=== PATIENT | male | born 1970 ===

== ENCOUNTER 2017-10-29 01:52 | Emergency (ER) | payer SELFPAY ==
[2017-10-29 01:52] VITALS: BMI 34.3
[2017-10-29] MEDS ORDERED: Morphine 4 MG/ML VIAL IVP ONE (02:30)
[2017-10-29] MEDS ORDERED: Iohexol 240 (50 ml) PO ONE (02:30)
[2017-10-29] MEDS ORDERED: Sodium Chloride 0.9% 1,000 ML IV STA (02:31)
--- NOTE | 2017-10-29 02:32 | ED PDOC ---
HPI: Abdomen Time Seen by Provider: 10/29/17 02:31 Chief Complaint (Nursing): Abdominal Pain Chief Complaint (Provider): ABDOMINAL PAIN History Per: Patient (47 Y/O MALE HERE FOR WORSENING ABDOMINAL PAIN X 2 DAYS ASSOCIATED WITH VOMITING. DENIES ANY FEVERS/CHILLS. ) Past Medical History Reviewed: Historical Data, Nursing Documentation, Vital Signs Vital Signs: Last Vital Signs Temp 97.9 F 10/29/17 02:11 Pulse 88 10/29/17 02:11 Resp 16 10/29/17 02:11 BP 143/81 10/29/17 02:11 Pulse Ox 96 10/29/17 05:29 - Medical History PMH: Denies: Arthritis, Asthma, Atrial Fibrillation, CHF, COPD, Diabetes, Hypercholesterolemia, Seizures - Surgical History Surgical History: Denies: CABG, Pacemaker - Family History Family History: States: CAD - Home Medications Home Medications: Ambulatory Orders Medication Instructions Recorded Famotidine [Pepcid] 20 mg PO Q12 #20 tab 05/05/16 Naproxen 375 mg PO Q8 PRN #21 tablet 10/29/17 - Allergies Allergies/Adverse Reactions: Allergies Allergy/AdvReac Type Severity Reaction Status Date / Time No Known Allergies Allergy Verified 10/29/17 02:11 Review of Systems ROS Statement: Except As Marked, All Systems Reviewed And Found Negative Physical Exam - Reviewed Nursing Documentation Reviewed: Yes Vital Signs Reviewed: Yes - Physical Exam Appears: Positive for: Well, Non-toxic, No Acute Distress Head Exam: Positive for: ATRAUMATIC, NORMAL INSPECTION, NORMOCEPHALIC Skin: Positive for: Normal Color, Warm, DRY Eye Exam: Positive for: EOMI, Normal appearance, PERRL ENT: Positive for: Normal ENT Inspection Neck: Positive for: Normal, Painless ROM Cardiovascular/Chest: Positive for: Regular Rate, Rhythm Respiratory: Positive for: CNT, Normal Breath Sounds Gastrointestinal/Abdominal: Positive for: Normal Exam, Soft Back: Positive for: Normal Inspection Extremity: Positive for: Normal ROM Neurologic/Psych: Positive for: Alert, Oriented - Laboratory Results Result Diagrams: 10/29/17 02:55 10/29/17 02:55 - ECG O2 Sat by Pulse Oximetry: 96 - Progress ED Course And Treament: morphine 4 mg iv x 1 dose zofran 4 mg iv x 1 dose ns 1 liter 500 ml per hour Called to bedside at CT for evlauation of chest tightness. Patient examined and noted to have wheezes bilaterally. STates he feels he is unable to breathe. Benadyl 50mg solumedrol 125mg iv Duoneb x 1 dose in ED EKG: NSR 82BPM NO ECTOPY NO ACUTE CHANGES NOTED CT abd/pelvis: IMPRESSION: 1. Small umbilical hernia containing nonindurated mesenteric fat. No other evidence of abdominal wall hernia or intestinal obstruction. 2. Moderate hepatic steatosis. Stable hepatic hypodensity and probable hemangioma when compared to CT - ABD PELVIS PO IV CONTRAST 2016-05-05 08:46. 3. Diverticulosis as described above without evidence of acute diverticulitis. 4. No change when compared to the CT - ABD PELVIS PO IV CONTRAST 2016-05-05 08: 46. Thank you for allowing us to participate in the care of your patient. Disposition - Clinical Impression Clinical Impression: Umbilical hernia - Patient ED Disposition Is Patient to be Admitted: No - Disposition Referrals: Yared Ellington MD [Staff Provider] - [facility] [Outside] Disposition: Routine/Home Disposition Time: 06:03 Condition: FAIR Prescriptions: Naproxen 375 mg PO Q8 PRN #21 tablet PRN Reason: Pain, Moderate (4-7) Instructions: Umbilical Hernia, Adult Forms: [facility] ED School/Work Excuse Print Language: BELIZEAN
[2017-10-29 03:26] LABS: BASO # 0.1 K/uL (0.0-0.2); BASO % 0.9 % (0.0-2.0); EOS # 0.5 K/uL (0.0-0.7); EOS % 4.6 % (0.0-4.0); HEMOGLOBIN 15.2 g/dL (12.0-18.0); LYMPH # 3.1 K/uL (1.0-4.3); MEAN CELL VOLUME 86.9 fl (80.0-94.0); MEAN CORPUSCULAR HEMOGLOBIN 30.6 pg (27.0-31.0); MEAN CORPUSCULAR HGB CONC 35.3 g/dL (33.0-37.0); MEAN PLATELET VOLUME 8.9 fl (7.2-11.7); MONO # 0.8 K/uL (0.0-0.8); MONO % 7.3 % (0.0-10.0); NEUT # 6.2 K/uL (1.8-7.0); NEUT % 58.2 % (50.0-75.0); NRBC % 0.1 % (0.0-0.0); RBC 4.96 Mil/uL (4.40-5.90); RED CELL DISTRIBUTION WIDTH 13.6 % (11.5-14.5); WHITE BLOOD COUNT 10.6 K/uL (4.8-10.8)
[2017-10-29 03:34] LABS: ALB/GLOB RATIO 1.1 (1.0-2.1); ALBUMIN 4.3 g/dL (3.5-5.0); ALT/SGPT 80 U/L (21-72); AST/SGOT 87 U/L (17-59); BLOOD UREA NITROGEN 9 mg/dl (9-20); CALCIUM 8.8 mg/dL (8.4-10.2); GFR AFRICAN-AMERICAN > 60; GFR NON-AFRICAN AMERICAN > 60; LIPASE 95 U/L (23-300)
[2017-10-29 03:40] LABS: PARTIAL THROMBOPLASTIN TIME 35.4 Seconds (25.6-37.1); PROTHROMBIN TIME 11.6 Seconds (9.8-13.1)
[2017-10-29] MEDS ORDERED: Morphine 4 MG/ML VIAL ONE (03:42)
[2017-10-29] MEDS ORDERED: Iohexol 240 (50 ml) ONE (03:43)
[2017-10-29] MEDS ORDERED: Iohexol 300 100 ML IJ ONE (04:49)
[2017-10-29] MEDS ORDERED: DiphenhydrAMINE 50 mg/ml Inj ONE (05:11)
[2017-10-29] MEDS ORDERED: Albuterol-Ipratrop 3 mg / 0.5 (3 ml) UD ONE (05:15)
[2017-10-29] MEDS ORDERED: DiphenhydrAMINE 50 mg/ml Inj IVP STA (05:17)
[2017-10-29] MEDS ORDERED: Albuterol-Ipratrop 3 mg / 0.5 (3 ml) UD INH STA (05:17)
[2017-10-29 06:21] VITALS: BP 138/86; PULSE 80; RESP 18; TEMP 98; O2SAT 95
--- NOTE | 2017-10-29 11:26 | CT ---
PROCEDURE: CT Abdomen and Pelvis with contrast HISTORY: r/o sbo h/o hernia moderate periumbilical tenderne COMPARISON: CT scan of the abdomen pelvis dated 05/05/2016. TECHNIQUE: Contrast dose: 95 mL Omnipaque 300 Radiation dose: Total exam DLP = 996.3 mGy-cm. This CT exam was performed using one or more of the following dose reduction techniques: Automated exposure control, adjustment of the mA and/or kV according to patient size, and/or use of iterative reconstruction technique. FINDINGS: LOWER THORAX: Cardiomegaly. No focal consolidation or pleural effusion. LIVER: Diffuse hepatic steatosis. 0.1 cm hypervascular lesion in the hepatic dome (series 3, image 21). 1.5 cm hypervascular lesion in the peripheral left hepatic lobe (series 3, image 42). 8 mm right hepatic lobe cyst Ductal dilatation. GALLBLADDER AND BILE DUCTS: Unremarkable. PANCREAS: Unremarkable. No gross lesion or ductal dilatation. SPLEEN: Unremarkable. ADRENALS: Unremarkable. No mass. KIDNEYS AND URETERS: Unremarkable. No hydronephrosis. No solid mass. VASCULATURE: Unremarkable. No aortic aneurysm. BOWEL: Colonic diverticulosis. No obstruction. No gross mural thickening. APPENDIX: Normal appendix. PERITONEUM: Small fat containing umbilical hernia. No free fluid. No free air. LYMPH NODES: Nonspecific prominence of the portacaval lymph node measuring 2.2 x 1.7 cm. BLADDER: Unremarkable. REPRODUCTIVE: Unremarkable. BONES: No acute fracture. OTHER FINDINGS: None. IMPRESSION: No evidence of small-bowel obstruction. Small fat containing umbilical hernia. Stable flash filling hepatic hemangiomas. Stable nonspecific prominence of a portacaval lymph node. Additional stable findings as above.
--- NOTE | 2017-10-31 10:11 | CARD ---
APPROVED REPORT EKG Measurement Heart [id number] <Conclusion> Normal sinus rhythm Normal ECG
== END 2017-10-29 06:39 | disposition home or self-care (01) ==
LOC: H.ER 01:52
DX: K42.9 Umbilical hernia without obstruction or gangrene (principal); Z82.49 Family history of ischemic heart disease and other diseases of the circulatory system
CPT/HCPCS: 74177; 80053; 83690; 85025; 85610; 85730; 86850; 86900; 93005; 96374; 96375; 99283; J1200; J2270; J2405; J2930; J7030; Q9966; Q9967